=== PATIENT | male | born 1965 | race Caucasian/White ===

== ENCOUNTER → 2017-10-14 | Outpatient (CLI) | payer BC | LOC: BMCIMAGING 12:27 | PROVIDERS: ATTEND Internal Medicine | DX: J15.9 Unspecified bacterial pneumonia (principal) ==

== ENCOUNTER → 2017-11-03 | Outpatient (CLI) | payer BC | LOC: FIMAGING 08:52 | PROVIDERS: ATTEND Internal Medicine | DX: E04.1 Nontoxic single thyroid nodule (principal); E05.90 Thyrotoxicosis, unspecified without thyrotoxic crisis or storm | CPT/HCPCS: 78014; A9516 ==

== ENCOUNTER 2017-11-30 07:48 | Observation (INO) | payer BC ==
[2017-11-30] MEDS ORDERED: THROMBIN (BOVINE) 5,000 UNIT VIAL TP ONE (07:58)
[2017-11-30] MEDS ORDERED: BUPIVACAINE/EPI 0.5% 30 ML SDV ONE (07:58)
--- NOTE | 2017-11-30 08:14 | PDHPUP ---
History & Physical Update H&P update statement: This history and physical update is based on an assessment of the patient which was completed after admission or registration (within 24 hours), but prior to the surgery/procedure. H&P update: H&P reviewed & patient examined, no change in patient's condition since H&P completed
[2017-11-30] MEDS ORDERED: ceFAZolin 2 GM/DEXTROSE 100 ML IV ONE (08:25)
[2017-11-30] MEDS ORDERED: LR 1,000 ML IV ONE (08:25)
--- NOTE | 2017-11-30 09:37 | PDANEPAE ---
ANE History of Present Illness Partial right Thyroidectomy ANE Past Medical History - Cardiovascular History Hx Hypertension: No Hx Arrhythmias: No Hx Chest Pain: No Hx Coronary Artery / Peripheral Vascular Disease: No Hx CHF / Valvular Disease: No Hx Palpitations: No - Pulmonary History Hx COPD: No Hx Asthma/Reactive Airway Disease: No Hx Recent Upper Respiratory Infection: No Hx Oxygen in Use at Home: No Hx Sleep Apnea: No Sleep Apnea Screening Result - Last Documented: Negative Pulmonary History Comment: PNEUMONIA/STREP LATE SEPTEMBER - Neurologic History Hx Cerebrovascular Accident: No Hx Seizures: No Hx Dementia: No - Endocrine History Hx Diabetes: No Endocrine History Comment: HOT THYROID NODULE MAKING IT HYPER - Renal History Hx Renal Disorders: No - Liver History Hx Hepatic Disorders: No - Neurological & Psychiatric Hx Hx Neurological and Psychiatric Disorders: No - Cancer History Hx Cancer: No - Congenital Disorder History Hx Congenital Disorders: No - GI History GERD: no Hx Gastrointestinal Disorders: No - Other Health History Other Health History: ARTHRITIS MARYSE HIPS AND LOWER BACK. SEASONAL ALLERGIES - Chronic Pain History Chronic Pain: No - Surgical History Prior Surgeries: NONE ANE Review of Systems Review of systems is: negative Review of Systems: - Exercise capacity METS (RN): 4 METS ANE Patient History - Allergies Allergies/Adverse Reactions: No Known Allergies Allergy (Unverified 11/17/17 10:10) - Home Medications Home Medications: Cetirizine [ZyrTEC 10 mg (*)] 10 mg PO DAILY PRN 11/17/17 [Last Taken 11/29/17] Herbals/Supplements -Info Only 1 ea PO DAILY 11/17/17 [Last Taken 11/23/17] Melatonin [Melatonin 3 MG (*)] 3 mg PO HS PRN 11/17/17 [Last Taken 11/23/17] Multivitamins [Multivitamin (*)] 1 each PO DAILY 11/17/17 [Last Taken 11/23/17] Naproxen Sodium [Aleve 220 MG (*)] 220 mg PO DAILY PRN 11/17/17 [Last Taken ] [place]-3 Fatty Acids [Fish Oil 1000 mg (*)] 1,000 mg PO DAILY 11/17/17 [Last Taken 11/23/17] Vitamin B Complex [Vitamin B Complex (OTC)] 1 each PO DAILY 11/17/17 [Last Taken 11/23/17] - NPO status NPO Status: no food or drink >8 hours NPO Since - Liquids (Date): 11/30/17 NPO Since - Liquids (Time): 06:20 NPO Since - Solids (Date): 11/29/17 NPO Since - Solids (Time): 20:00 - Smoking Hx Smoking Status: Former smoker - Family Anes Hx Family Hx Anesthesia Complications: NEG ANE Labs/Vital Signs - Vital Signs Blood Pressure: 124/69 Heart Rate: 64 Respiratory Rate: 16 O2 Sat (%): 95 Height: 180.34 cm Weight: 83.915 kg ANE Physical Exam - Airway Neck exam: FROM Mallampati Score: Class 1 Mouth exam: normal dental/mouth exam - Pulmonary Pulmonary: no respiratory distress, no rales or rhonchi - Cardiovascular Cardiovascular: regular rate and rhythym, no murmur, rub, or gallop - ASA Status ASA Status: I ANE Anesthesia Plan Anesthesia Plan: general endotracheal anesthesia
[2017-11-30] MEDS ORDERED: MIDAZOLAM 2 MG/2 ML VIAL IVP ONE (09:39)
[2017-11-30] MEDS ORDERED: PROPOFOL/EMULSION 500 MG/50 ML BOTTLE IV ONE (10:22)
[2017-11-30] MEDS ORDERED: fentaNYL 100 MCG/2 ML INJ ONE ×4 (10:22→12:39)
[2017-11-30] MEDS ORDERED: ROCURONIUM 50 MG/5 ML VIAL ONE (10:42)
[2017-11-30] MEDS ORDERED: LIDOCAINE 2% 5 ML SDV ONE (10:42)
[2017-11-30] MEDS ORDERED: PROPOFOL 200 MG/20 ML VIAL ONE ×2 (10:42→11:28)
[2017-11-30] MEDS ORDERED: ONDANSETRON 4 MG/2 ML VIAL ONE (10:42)
[2017-11-30] MEDS ORDERED: GLYCOPYRROLATE 0.2 MG/1 ML VIAL ONE (10:43)
[2017-11-30] MEDS ORDERED: DEXAMETHASONE 4 MG/ML VIAL ONE (10:44)
[2017-11-30] MEDS ORDERED: ONDANSETRON 4 MG/2 ML VIAL IVP PRN (12:13)
[2017-11-30] MEDS ORDERED: HYDROmorphONE/DILAUDID 2 MG/ML INJ IVP PRN (12:13)
[2017-11-30] MEDS ORDERED: HYDROCODONE/APAP 5/325 TAB PO PRN (12:13)
[2017-11-30] MEDS ORDERED: PROMETHAZINE HCL 25 MG/ML INJ IVP PRN (12:13)
[2017-11-30] MEDS ORDERED: oxyCODONE IR 5 MG TAB PO PRN (12:13)
[2017-11-30] MEDS ORDERED: NALOXONE HCL 0.4 MG/ML INJ IVP PRN (12:13)
--- NOTE | 2017-11-30 12:15 | POSTANESTH ---
Post Anesthetic Evaluation Cardiovascular Status: Normal, Stable Respiratory Status: Normal, Stable Level of Consciousness/Mental Status: Can Participate in Eval Pain Control: Adequate, Prn Tx Ordered Nausea/Vomiting Control: Adequate, Prn Tx Ordered Complications Possibly Related to Anesthesia: None Noted
[2017-11-30] MEDS ORDERED: HYDROmorphONE/DILAUDID 1 MG/ML INJ IVP PRN (12:31)
--- NOTE | 2017-11-30 12:33 | POSTOPPROG ---
Post Op Note Date of Operation: 11/30/17 Surgeon: Miguel Whitman Weight Recorder: Lara Vila Anesthesiologist: Irma Arthur Anesthesia: GET(General Endotracheal) Pre-op Diagnosis: hot thyroid nodule Post-op Diagnosis: same Procedure: R hemithyroidectomy Findings: nerve preserved. nodule benign on frozen section Inf/Abcess present in the surg proc area at time of surgery?: No EBL: Minimal Complications: none Specimen(s): R thyroid
[2017-11-30] MEDS ORDERED: HYDROmorphONE/DILAUDID 1 MG/ML INJ ONE (12:38)
[2017-11-30] MEDS: fentaNYL 100 MCG/2 ML INJ IVP PRN ×2 (12:40→12:45)
[2017-11-30] MEDS: NS W/ 20 KCl/L 1,000 ML IV SCH ×2 (13:55→21:50)
[2017-11-30] MEDS: HYDROCODONE/APAP 5/325 TAB PO PRN ×2 (17:22→21:49)
[2017-11-30] MEDS: DOCUSATE SODIUM 100 MG CAP PO SCH (21:49)
[2017-12-01] MEDS: HYDROCODONE/APAP 5/325 TAB PO PRN ×2 (05:07→11:24)
--- NOTE | 2017-12-01 08:29 | SOAPPROG ---
[facility] Progress Note Assessment/Plan: Assessment: 52 y/o M s/p hemithyroidectomy for thyroid nodule POD#1 Frozen section negative for malignancy, final path still pending S: Doing well. Did have some pain this morning around 0500, but it has since resolved with Anchor. Eager to be discharged. O: Alert Afebrile Calcium level: 8.6 No increased WOB Neck: dressing taken down. Incision with steri strips, cdi. Negative [place]ek' s sign Plan: Dispo home today. Follow up in our office in one week. Will have repeat Ca level drawn prior to visit. 12/01/17 08:25 Objective: Vital Signs Temp Pulse Resp BP Pulse Ox 36.4 C 72 16 113/66 96 12/01/17 04:00 12/01/17 04:00 12/01/17 04:00 12/01/17 04:00 12/01/17 04:00 Laboratory Results 12/01/17 05:05 12/01/17 05:05 11/30/17 12/01/17 12/02/17 05:59 05:59 05:59 Intake Total 1804 Output Total 704 Balance 5920 ICD10 Worksheet Patient Problems: Problems Problem Status Onset Thyroid nodule Acute - ICD10 Problem Qualifiers (1) Thyroid nodule
[2017-12-01 08:50] VITALS: BP 110/70
[2017-12-01] MEDS: DOCUSATE SODIUM 100 MG CAP PO SCH (09:19)
[2017-12-02] MEDS ORDERED: ENOXAPARIN 40 MG/0.4 ML SYR SC SCH (09:00)
--- NOTE | 2017-12-05 00:54 | GOP ---
[f rep st] OPERATIVE REPORT DATE OF OPERATION: 11/30/2017 SURGEON: Miguel Whitman MD APPAREL MANAGER: Lara Vila, PAC ANESTHESIA: General endotracheal anesthesia. ANESTHESIOLOGIST: Irma Arthur MD. PREOPERATIVE DIAGNOSIS: Hot right thyroid nodule. POSTOPERATIVE DIAGNOSIS: Hot right thyroid nodule. Pathology pending. PROCEDURE PERFORMED: Right hemithyroidectomy. FINDINGS: Patient was found to have a 2.5 cm nodule in the right lobe of the thyroid which appeared to be benign on frozen section. Final path is pending. DESCRIPTION OF PROCEDURE: The patient was taken to the operating room where he received a satisfacto ry general endotracheal anesthesia by Dr. Arthur. He was placed in supine position and prepped and d raped in the usual sterile fashion. A low collar-type incision was made and carried through the plat ysma. Strap muscles were in the midline. Cutaneal platysmal flaps were developed to the t hyroid cartilage and to the sternal notch. Strap muscles were then in the midline and retr acted. Right side of the thyroid was then mobilized by dividing the middle thyroid vein and rotating the thyroid lobe medially. The palpable nodule was seen in the right lobe of the thyroid. Parathyr oid glands were identified and dissected away from the capsule of the right lobe. The recurrent lynn ngeal nerve was identified and traced through its course with care to spare injury to the nerve. Onc e the anatomy was delineated, the superior pole vessels were divided with the Harmonic scalpel, and t he gland was further rotated medially. It was then dissected off the anterior wall of the trachea us ing the Harmonic scalpel and/or electrocautery. The isthmus was divided with the Harmonic scalpel, a nd the specimen was sent off to Pathology. 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 Final pat h is pending. The left lobe of the thyroid was mobilized, and there were no palpable abnormalities s een. The wound was then irrigated. Hemostasis was assured. Some topical thrombin was placed in the surgical bed. The strap muscles approximated with 3-0 Vicryl. The platysma was closed with 3-0 [place] ryl. Superficial layers were infiltrated with 0.5% Marcaine. The skin was closed with 4-0 Monocryl subcuticular stitch. He tolerated the procedure quite well and was taken to the recovery room in goo d condition. There were no complications to the surgery. /[id number]/MODL
== END 2017-12-01 11:56 | disposition home or self-care (01) ==
LOC: F3E 07:48
PROVIDERS: ADMIT Surgery; ATTEND Surgery
PROC: 0GTH0ZZ Resection of Right Thyroid Gland Lobe, Open Approach (ICD-10-PCS; principal; 2017-11-30 09:45)
DX: E04.1 Nontoxic single thyroid nodule (principal); E05.90 Thyrotoxicosis, unspecified without thyrotoxic crisis or storm; N40.1 Benign prostatic hyperplasia with lower urinary tract symptoms
CPT/HCPCS: 60220; G0378; J0690; J1100; J1170; J2250; J2405; J2704; J3010